=== PATIENT | male | born 1995 ===

== ENCOUNTER 2019-12-28 17:30 | Outpatient (CLI) | payer BC | END 2019-12-28 17:31 | disposition home or self-care (01) | LOC: SLEEPLAB 17:30 | PROVIDERS: ATTEND Internal Medicine Pulmonary Disease | DX: G47.33 Obstructive sleep apnea (adult) (pediatric) (principal); G47.419 Narcolepsy without cataplexy; G47.9 Sleep disorder, unspecified | CPT/HCPCS: 95806 ==